=== PATIENT | female | born 1990 | race Caucasian/White ===

== ENCOUNTER 2020-07-23 11:01 | Inpatient (IN) | payer BC ==
[~2020-07-23 11:01] MED LIST: Metoclopramide HCl 10 MG/2 ML VIAL ONE
[2020-07-23] MEDS ORDERED: Acetaminophen 325 MG TAB PO PRN (11:21)
[2020-07-23] MEDS ORDERED: Ondansetron ODT 4 MG TAB PO PRN (11:21)
[2020-07-23] MEDS ORDERED: Ondansetron PF 4 MG/2 ML Vial IVP PRN (11:21)
[2020-07-23] MEDS ORDERED: Calcium Carbonate 500 MG ChewTAB PO PRN (11:21)
[2020-07-23 11:56] VITALS: BMI 30.2
[2020-07-23] MEDS ORDERED: Morphine 2 MG/ML VIAL SLOW IVP PRN (12:25)
--- NOTE | 2020-07-23 12:28 | PDOC.HHP ---
Hospitalist [facility] obstructive uropathypatient is a transfer History of Present Illness: 29-year-old female with no past history presents to [facility] emergency room on 07/21 with right-sided flank pain radiating to her groin along with dysuria and urgency. She felt nauseous however denied any vomiting. In the emergency room, CT scan was consistent with bilateral nonobstructing nephrolithiasis with right- sided pyelonephritis. She was discharged home on oral ciprofloxacin. WBC count was 7.8. Patient returned to [facility] emergency room after few hours due to worsening abdominal pain. She was admitted at [facility] and was started on ceftriaxone with Flomax. She also had mild acute kidney injury with creatinine of 1.3 that improved with IV hydration. WBC count improved to 14.9 from 17.3 yesterday. This morning she also had shortness of breath with mild hypoxia requiring discontinuation of IV fluids. Her pain was controlled with IV morphine and ibuprofen. A Garcia catheter was also placed due to urinary retention. This [place] [facility] [place] again with the radiologist and found that patient has approximately 6 mm calculi in the right ureteropelvic junction. For this reason she was transferred to this facility for higher level of care. Allergies/Adverse Reactions: Allergy/AdvReac Type Severity Reaction Status Date / Time No Allergy Information Allergy Unverified 07/23/20 12:17 Available Comments: Patient currently takes control medication. Past History: PAST MEDICAL HISTORY: Migraines PAST SURGICAL HISTORY: Reviewed with the patient and none ALLERGIES: No known drug allergies SOCIAL HISTORY: Drinks alcohol socially. No smoking or drug use FAMILY HISTORY: No history of heart disease or diabetes in her family Hospitalist HPI ROS Constitutional: denies: fever, chills, sweats, weakness, malaise, other Respiratory: reports: SOB with excertion. denies: cough, dry, shortness of breath, hemoptysis, pleuritic pain, sputum, wheezing, other Cardiovascular: denies: chest pain, palpitations, orthopnea, paroxysmal noc. dyspnea, edema, light headedness, other Genitourinary: reports: dysuria, retention All other systems reviewed; all pertinent +/- noted in HPI/Subj Hospitalist Exam Vitals: Vital Signs (12 hours) Temp Pulse Resp BP Pulse Ox 07/23/20 10:25 98.7 F 86 16 116/77 94 L Weight Weight 187 lb General Appearance: ill appearing Eye: PERRL, anicteric sclera ENT: normocephalic atraumatic, no oropharyngeal lesions Neck: supple, symmetric, no JVD Heart: RRR, no gallops, no rubs, normal peripheral pulses Respiratory: no wheezes, no ronchi, normal chest expansion, no tachypnea, rales (Add basis) Gastrointestinal: soft, normal bowel sounds, no guarding, no rigidity, tender to palpation (In the right flank) Extremities: no cyanosis, no clubbing Skin: normal turgor, no lesions Neurological: normal sensation to touch, no weakness, no focal deficits Musculoskeletal: normal tone, normal strength Psychiatric: normal affect, A&O x 3 Hospitalist Results Lab results: As discussed above. Other electrolytes were in normal range CT scan - Ab/Pelvis Status: report reviewed by me Additional Comments: As discussed above Hospitalist H&P A/P (1) Severe sepsis Code(s): A41.9 - SEPSIS, UNSPECIFIED ORGANISM; R65.20 - SEVERE SEPSIS WITHOUT SEPTIC SHOCK Status: Acute (2) Pyelonephritis of right kidney Code(s): N12 - TUBULO-INTERSTITIAL NEPHRITIS, NOT SPCF ACUTE OR CHRONIC Status: Acute (3) Obstructive uropathy Code(s): N13.9 - OBSTRUCTIVE AND REFLUX UROPATHY, UNSPECIFIED Status: Acute (4) SHAHNAZ (acute kidney injury) Code(s): N17.9 - ACUTE KIDNEY FAILURE, UNSPECIFIED Status: Acute (5) Obesity (BMI 30.0-34.9) Code(s): E66.9 - OBESITY, UNSPECIFIED Status: Acute (6) Bilateral nephrolithiasis Code(s): N20.0 - CALCULUS OF KIDNEY Status: Acute Plan: Severe sepsis due to right-sided pyelonephritis with 6 mm calculi at the right ureteropelvic junction Admit to surgical floor. Continue ceftriaxone based on the cultures. Will consult urology. N.p.o. Will hold IV fluid due to shortness of breath and hypoxemia earlier today. Chest x-ray will be obtained. Recheck labs in a.m. Morphine as needed for pain control. 1 dose of Toradol since patient has significant headache. Obesity with a BMI of 30.2 Lifestyle modification will be beneficial History of migraines We will continue to monitor SHAHNAZ improved with IV hydration
[2020-07-23] MEDS ORDERED: Fentanyl 100 MCG/2 ML VIAL ONE (12:36)
[2020-07-23] MEDS ORDERED: SUGAMMADEX SODIUM 200 MG/2 ML VIAL ONE (12:36)
[2020-07-23] MEDS ORDERED: Famotidine/PF 20 mg/2ml Vial ONE (12:36)
[2020-07-23] MEDS ORDERED: Iothalamate Meglumine 60% 50 ML VIAL FS ONE (12:42)
--- NOTE | 2020-07-23 13:09 | RAD ---
EXAM: XR Chest Pa Lat STANDARD PROVIDED CLINICAL HISTORY: Preop COMPARISON: None FINDINGS: Cardiac and mediastinal silhouette is within normal limits. There is prominent bilateral patchy airsp holly disease. There is poor definition to the posterior costophrenic angles, which may reflect pleural fluid. There is no evidence for pneumothorax. IMPRESSION: 1. Bilateral airspace disease, compatible with pneumonia. Correlate for Covid pneumonia. 2. Possible bilateral pleural fluid.
[2020-07-23] MEDS ORDERED: Sodium Chloride 0.9% 10 ML ONE (13:20)
--- NOTE | 2020-07-23 13:26 | CT ---
EXAM: CT abdomen and pelvis without contrast PROVIDED CLINICAL HISTORY: Ureteral calculus COMPARISON: None FINDINGS: Bilateral pleural fluid and bibasilar airspace disease. Bilateral nephrolithiasis, measuring 3 mm maximally involving the midportion of the right kidney. The re is right perinephric and right periureteral fat stranding and noncircumscribed fluid. There is no evidence for hydronephrosis or hydroureter. There is a 4 mm calculus present at the base of the ur inary bladder right of midline, favored to be within the urinary bladder. This could also be intramural within the UVJ. There is an additional tiny calculus present within the urinary bladder le ft of midline. The liver, spleen, pancreas and adrenal glands appear without acute abnormality. There is a featurele ss appearance to the pancreas, which is nonspecific but can be seen in the setting of autoimmune disease. There is no bowel dilatation, additional inflammatory fat stranding, free fluid or free air apparent. There is no evidence for appendicitis. The osseous structures demonstrate no concerning lytic or blastic lesions. IMPRESSION: 1. Bilateral nephrolithiasis. 2. 4 mm bladder/right UVJ calculus without evidence for hydronephrosis or hydroureter. 2 mm bladder c alculus. 3. Small bilateral fluid and bibasilar airspace disease that may reflect pneumonia or edema.
[2020-07-23] MEDS ORDERED: Furosemide 20 MG/2 ML VIAL SLOW IVP SCH (13:45)
[2020-07-23 14:11] LABS: SARS-CoV-2 NAA Rapid Test Not Detected (NotDetected)
[2020-07-23] MEDS ORDERED: Ketorolac Tromethamine 30 MG/ML VIAL IVP SCH (14:30)
--- NOTE | 2020-07-23 14:46 | CON ---
DATE OF CONSULTATION: 07/23/2020 REASON FOR CONSULTATION: Right ureteral calculi with UTI. 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 She was discharged with ciprofloxacin for presumed pyelonephritis and had white count of 17,000 with normal renal function. As she had persistent discomfort with ciprofloxacin, she returned to [facility] Emergency Room with persistent discomfort with nausea, headache. Chart from [facility] reviewed as well as imaging report. She had a CT scan initially demonstrating no evidence of hydronephrosis. Nonobstructing right renal calculi noted. However, due to persistent discomfort, it appears that the imaging was repeated; however, the results are not in chart. She relates that her right lower quadrant flank pain is improving, more concerning regarding her headache as she has tendency for migraines. She denies chills, however, appears quite uncomfortable from her migraines. She has been on Rocephin, has had increased fluid consumption for passage of stone; however, now is feeling shortness of breath, on 2 L of O2, as she states that she was provided aggressive IV fluids at [facility] Emergency Room. She denies prior history of pyelonephritis or prior history of kidney stone. PAST MEDICAL HISTORY: Migraines. SURGICAL HISTORY: None. ALLERGIES: NO KNOWN DRUG ALLERGIES. SOCIAL HISTORY: Negative x3. 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 Single. PHYSICAL EXAMINATION: VITAL SIGNS: 98, 86, 16, 94% on 2 L. Blood pressure 116/77. GENERAL: The patient is crying, speaking to her mother. She states her headache is quite unbearable. HEENT: Grossly unremarkable. HEART: Regular rate. LUNGS: Decreased inspiratory effort. No gross CVA tenderness per se. ABDOMEN: Obese. Protuberant. No suprapubic tenderness or lower quadrant discomfort. EXTREMITIES: No cyanosis, clubbing, or edema. : Grossly unremarkable. SKIN: No lesions. NEUROLOGIC: No gross focal deficits. PSYCHIATRIC: Appears anxious and uncomfortable due to severe migraines. PERTINENT LABS AND IMAGING: Which I reviewed independently. Initial white count of 17,000, subsequently 14. Creatinine 0.7. Urine culture reviewed from [facility] demonstrating E coli, resistant to quinolones, however, pansensitive to cephalosporins. CT, which I reviewed on CD, however, only one CT study is available from July 21 demonstrating bilateral nonobstructing renal calculi. No evidence of obstruction. There is no significant perinephric stranding of concern. A 6 mm right mid pole renal calculi, left punctate renal calculi x2, per my review about 2 mm each x2. IMPRESSION AND PLAN: 1. Marita is a 29-year-old female with no prior urologic history, presented to [facility] with right flank pain. 2. The patient has Escherichia coli urinary tract infection, resistant to quinolones, initially treated with ciprofloxacin and currently transferred from [facility] due to persistent discomfort. 3. History of right UVJ stone per report, the patient appears to have no obvious discomfort in the suprapubic or flank region. Moreover, her headache is a concern. She has been managed with aggressive IV fluids, it would be prudent to obtain a repeat CT scan prior to proceeding with surgical intervention. The patient agrees to proceed with restaging CT. PA and lateral chest x-ray ordered by hospitalist due to shortness of breath, likely due to aggressive IV fluids. 4. The patient was previously tested for COVID about a week ago, negative per the patient. Informed the patient that COVID-19 is to be done due to hospital protocol. addendum as above, as she has no significant right flank pain or right lower quadrant abdominal discomfort CT stone protocol obtained. CT demonstrates no evidence of hydronephrosis, perinephric stranding consistent with likely spontaneous passage of her right UVJ stone stone is seen within the bladder in a dependent position as well as a second left punctate dependent stone. No evidence of hydronephrosis bilaterally . Right upper pole 3 mm, left punctate nonobstructing punctate calculi x3. chest x-ray demonstrates fluid overload. Discussed with patient regarding these findings, as she has no flank pain of concern, clinically consistent with spontaneous passage. Could proceed with treating her UTI, pyelonephritis with Rocephin. Her main complaint at this time is migraines which primary service will address. Recommend diuresis, as her chest x-ray demonstrates bilateral pleural effusion Job ID: [id number] [facility]
[2020-07-23] MEDS: cefTRIAXone\\ROCEPHIN 2 GM in Sodium Chloride 0.9% 100 ML IVPB SCH (15:04)
[2020-07-23] MEDS ORDERED: HYDROcodone/Acetaminophen 5/325 mg Tablet PO PRN (15:49)
[2020-07-23] MEDS ORDERED: Polyethylene Glycol 3350 17 GM Packet PO PRN (15:49)
[2020-07-23] MEDS ORDERED: Senokot S 8.6-50 MG TAB PO PRN (15:49)
[2020-07-23] MEDS: Tamsulosin HCl 0.4 MG CAP PO SCH (20:22)
[2020-07-23] MEDS: Famotidine 20 MG TAB PO SCH (20:48)
[2020-07-23] MEDS ORDERED: Aspirin/APAP/Caffeine Tab (Excedrin Migraine) PO SCH (21:00)
[2020-07-23] MEDS ORDERED: Famotidine/PF 20 mg/2ml Vial SLOW IVP SCH (21:00)
[2020-07-24 05:43] LABS: #Basophils 0.1 thou/uL (0.0-0.2); #Eosinphils 0.2 thou/uL (0.0-0.7); #Lymphocytes 2.8 thou/uL (1.20-3.40); #Monocytes 1.2 thou/uL (0.11-0.59); #Neutrophils 11.7 thou/uL (1.40-6.50); %Basophils 0.5 % (0.0-1.0); %Eosinophils 0.9 % (0.0-10.0); %Lymphocytes 17.4 % (21.0-51.0); %Monocytes 7.3 % (0.0-10.0); %Neutrophils 73.9 % (42.0-75.0); Hemoglobin 12.8 g/dL (12.0-16.0); Mean Corpuscular HGB CONC 33.8 g/dL (32.0-36.0); Mean Corpuscular Hemoglobin 31.7 pg (27.0-31.0); Mean Corpuscular Volume 93.7 fL (78.0-98.0); Mean Platelet Volume 7.8 fL (7.4-10.4); Platelet Count 227 thou/uL (130-400); RBC Distribution Width 10.9 % (11.5-14.5); Red Blood Cell (RBC) Count 4.05 mill/uL (4.20-5.40); White Blood Cell (WBC) Count 15.8 thou/uL (4.8-10.8)
[2020-07-24 06:00] LABS: Anion Gap 11 mmol/L (10-20); BUN (Urea Nitrogen) 15 mg/dL (7.0-18.7); Calc. Creatinine Clearance 112 mL/min (70-130); Calcium 8.9 mg/dL (7.8-10.44); Carbon Dioxide 27 mmol/L (22-29); Chloride 108 mmol/L (98-107); Glucose 89 mg/dL (70-105); Magnesium 1.8 mg/dL (1.6-2.6); Potassium 4.1 mmol/L (3.5-5.1); Sodium 142 mmol/L (136-145)
[2020-07-24] MEDS ORDERED: Aspirin/APAP/Caffeine Tab (Excedrin Migraine) PO SCH (06:00)
[2020-07-24] MEDS ORDERED: Aspirin/APAP/Caffeine Tab (Excedrin Migraine) PO PRN ×2 (07:39→07:40)
--- NOTE | 2020-07-24 08:08 | PRG ---
DATE OF SERVICE: 07/24/2020 SUBJECTIVE: The patient denies flank pain, dysuria, fever, or chills. States that her shortness of breath is better, however, feels chest pressure. This is the most bothersome issue with her that she has chest pressure. OBJECTIVE: VITAL SIGNS: Stable. She is afebrile. She is on 2 L of O2. I's and O's 1200 in and 1700 out. GENERAL: The patient appears to have some distress due to chest discomfort and pressure. ABDOMEN: Soft, nontender, and nondistended. No CVA tenderness. PERTINENT LABORATORY DATA: White count today is 15, at [facility] yesterday was 14, hemoglobin is stable at 12, and platelet 227. Renal function stable. Creatinine 1.01. COVID test negative. The patient with history of E coli UTI, initially treated with ciprofloxacin, currently on Rocephin. IMPRESSION AND PLAN: 1. Marita is a 29-year-old female who presented to [facility] for right flank pain, found to have Escherichia coli urinary tract infection, initially treated with ciprofloxacin, subsequently transitioned to Rocephin and she was transferred to [place]. 2. History of bilateral nonobstructing renal calculi. 3. Recent passage of ureteral calculi clinically as she has no residual flank or lower quadrant abdominal discomfort. Continue to strain all urine output. Recommendations continue IV Rocephin, when the patient is medically stable, she will be transitioned to p.o. antibiotic regimen based on her urine culture sensitivity. 4. Fluid overload, chest pressure, informed nurse to contact hospitalist regarding further workup and assessment. Job ID: [id number] [facility]
[2020-07-24] MEDS ORDERED: Furosemide 40 MG/4 ML VIAL SLOW IVP SCH (08:30)
[2020-07-24] MEDS ORDERED: Potassium Chloride 20 MEQ TAB PO SCH ×2 (08:30→17:00)
[2020-07-24] MEDS ORDERED: Furosemide 40 MG/4 ML VIAL ONE (09:04)
[2020-07-24] MEDS: Famotidine 20 MG TAB PO SCH ×2 (09:10→20:38)
[2020-07-24] MEDS ORDERED: Enoxaparin Sodium 40 MG/0.4 ML SYRINGE SC SCH (10:45)
[2020-07-24] MEDS: cefTRIAXone\\ROCEPHIN 2 GM in Sodium Chloride 0.9% 100 ML IVPB SCH (15:39)
--- NOTE | 2020-07-24 17:08 | PQF ---
CLINICAL DOCUMENTATION CLARIFICATION FORM: Dear Dr. Ferrara Date: 07/24/20 Please exercise your independent, professional judgment in responding to the clarification form. Clinical indicators are provided on the bottom of this form for your review. Please check appropriate box(es): [ ] Acute Respiratory Failure: [ ] with Hypoxia [ ] with Hypercapnia [ ] Acute On Chronic Respiratory Failure: [ ] with Hypoxia [ ] with Hypercapnia [ ] Acute Respiratory Failure due to: (etiology) [ ] Chronic Respiratory Failure only [ ] with Hypoxia [ ] with Hypercapnia [ ] Other diagnosis [ ] Unable to determine In addition, please specify: Present on Admission (POA): [ ] Yes [ ] No [ ] Unable to determine For continuity of documentation, please document condition throughout progress notes and discharge summary. Thank You. To be completed by CDI/Coding staff for physician review: CLINICAL INDICATORS - SIGNS / SYMPTOMS / LABS / RESULTS AND LOCATION IN MR H&P (NAM): SHORTNESS OF BREATH AND MILD HYPOXIA NURSE NOTE 3/: DISCOMFORT TO CHEST WHEN TAKING DEEP BREATH,,,O2 SAT OF 93-94% ON 3 LITERS. RISK FACTORS / RESULTS AND LOCATION IN MR POSSIBLE FLUID OVERLOAD (PER NURSE NOTE 3/1) SHALLOW BREATHING (NURSE NOTE 3/1) BNP 317.3 TREATMENTS / RESULTS AND LOCATION IN MR IV LASIX X1 (07/24) SUPPLEMENTAL OXYGEN ECHOCARDIOGRAM ORDERED DISCONTINUATION FLUIDS (H&P) Acute Respiratory Failure: ABG pH < 7.35 or > 7.45; Decreased oxygen saturation (<90% room air or < 95% on oxygen); PCO2 > 50 mm Hg; PO2 < 60 mm Hg; Labored or rapid respirations ARDS: Dx Criteria [[place] ARDS]: Respiratory symptoms within one week of a known clinical insult (e.g. shock, infection, surgery, trauma) Bilateral opacities in CXR/Chest CT not due to CHF or fluid CDS Signature: Ursula York RN Phone #: [phone] Date: 07/24/20 This is a permanent part of the Medical Record [facility]
--- NOTE | 2020-07-24 17:51 | PDOC.HOSPP ---
- Subjective Encounter Date: 07/24/20 Encounter Time: 09:30 Subjective: Patient seen and examined for complicated UTI. Continues to have shortness of breath requiring O2 supplementation. Denies any palpitations, nausea or diaphoresis. Some generalized chest pressure reported - Objective Vital Signs & Weight: Vital Signs (12 hours) Temp Pulse Resp BP Pulse Ox 07/24/20 11:30 98.7 F 75 28 H 114/77 96 07/24/20 07:50 98.5 F 86 14 136/81 93 L 07/24/20 07:45 93 L 07/24/20 07:25 28 H Weight Weight 187 lb I&O: 07/23/20 07/24/20 07/25/20 06:59 06:59 06:59 Output Total 1200 400 Balance -1200 -400 Result Diagrams: 07/24/20 05:20 07/24/20 05:20 Additional Labs: Abnormal Lab Results - Last 48 hrs 07/24/20 05:20: WBC 15.8 H, RBC 4.05 L, MCH 31.7 H, RDW 10.9 L, Lymphocytes % 17.4 L, Neutrophils # 11.7 H, Monocytes # 1.2 H 07/24/20 05:20: Chloride 108 H 07/24/20 10:58: B-Natriuretic Peptide 317.3 H EKG Reviewed by me: Yes (Sinus rhythm with nonspecific ST-T wave changes in the inferior leads) Hospitalist ROS - Review of Systems Respiratory: reports: shortness of breath, SOB with excertion. denies: cough, dry, hemoptysis, pleuritic pain, sputum, wheezing, other Gastrointestinal: denies: nausea, vomiting, abdominal pain, diarrhea, constipation, melena, hematochezia, other - Medication Medications: Active Medications Generic Name Dose Route Start Last Admin Trade Name Freq PRN Reason Stop Dose Admin Hydrocodone Bitart/Acetaminophen 1 tab 07/23/20 15:49 07/23/20 17:35 Hydrocodone/Acetaminophen 5/325 Mg Tablet PO 1 tab Q4H PRN Administration Moderate Pain (4-6) Famotidine 20 mg 07/23/20 21:00 07/24/20 09:10 Famotidine 20 Mg Tab PO 20 mg BID JOE Administration Ceftriaxone Sodium 2 gm/ 100 mls @ 200 mls/hr 07/23/20 15:00 07/24/20 15:39 Sodium Chloride IVPB 100 mls 1500 JOE Administration Morphine Sulfate 2 mg 07/23/20 12:25 07/23/20 16:45 Morphine 2 Mg/Ml Vial SLOW IVP 07/26/20 12:26 2 mg Q4H PRN Administration Severe Pain (7-10) Tamsulosin HCl 0.4 mg 07/23/20 21:00 07/23/20 20:22 Tamsulosin Hcl 0.4 Mg Cap PO 0.4 mg HS JOE Administration Hospitalist Exam Vitals: Vital Signs (12 hours) Temp Pulse Resp BP Pulse Ox 07/24/20 11:30 98.7 F 75 28 H 114/77 96 07/24/20 07:50 98.5 F 86 14 136/81 93 L 07/24/20 07:45 93 L 07/24/20 07:25 28 H Weight Weight 187 lb General Appearance: awake alert Neck: supple, no JVD Heart: RRR Respiratory: no wheezes, rales (At bases), rhonchi Gastrointestinal: soft, non-tender, normal bowel sounds Extremities: no cyanosis, no clubbing Neurological: no new deficit Psychiatric: normal affect, A&O x 3 Hosp A/P (1) Severe sepsis Code(s): A41.9 - SEPSIS, UNSPECIFIED ORGANISM; R65.20 - SEVERE SEPSIS WITHOUT SEPTIC SHOCK Status: Acute (2) Pyelonephritis of right kidney Code(s): N12 - TUBULO-INTERSTITIAL NEPHRITIS, NOT SPCF ACUTE OR CHRONIC Status: Acute (3) Obstructive uropathy Code(s): N13.9 - OBSTRUCTIVE AND REFLUX UROPATHY, UNSPECIFIED Status: Acute (4) SHAHNAZ (acute kidney injury) Code(s): N17.9 - ACUTE KIDNEY FAILURE, UNSPECIFIED Status: Acute (5) Obesity (BMI 30.0-34.9) Code(s): E66.9 - OBESITY, UNSPECIFIED Status: Acute (6) Bilateral nephrolithiasis Code(s): N20.0 - CALCULUS OF KIDNEY Status: Acute - Plan DVT proph w/lovenox, DVT proph w/SCDs Severe sepsis due to right-sided pyelonephritis with 6 mm calculi at the right ureteropelvic junction. Repeat CT imaging showed passage of stone. Plan: Continue IV ceftriaxone based on sensitivities. Patient has leukocytosis today. Recheck labs in a.m. Urology input appreciated Acute hypoxic respiratory failure due to iatrogenic volume overloadPOA We will give another dose of IV Lasix today. Patient has bibasilar crackles BNP is elevated. EKG showed nonspecific ST-T wave changes in the inferior lead. Echocardiogram will be obtained. Pulmonary embolism less likely. Obesity with a BMI of 30.2 Lifestyle modification will be beneficial History of migraines We will continue to monitor SHAHNAZ improved with IV hydration
[2020-07-24] MEDS: Tamsulosin HCl 0.4 MG CAP PO SCH (20:38)
[2020-07-25 06:00] LABS: #Eosinphils 0.2 thou/uL (0.0-0.7); #Lymphocytes 2.1 thou/uL (1.20-3.40); #Neutrophils 7.3 thou/uL (1.40-6.50); %Basophils 0.4 % (0.0-1.0); %Eosinophils 1.9 % (0.0-10.0); %Lymphocytes 19.8 % (21.0-51.0); %Monocytes 9.5 % (0.0-10.0); %Neutrophils 68.4 % (42.0-75.0); Mean Corpuscular HGB CONC 33.3 g/dL (32.0-36.0); Mean Corpuscular Hemoglobin 31.4 pg (27.0-31.0); Mean Corpuscular Volume 94.1 fL (78.0-98.0); Mean Platelet Volume 7.3 fL (7.4-10.4); Platelet Count 246 thou/uL (130-400); RBC Distribution Width 10.9 % (11.5-14.5); Red Blood Cell (RBC) Count 4.45 mill/uL (4.20-5.40); White Blood Cell (WBC) Count 10.6 thou/uL (4.8-10.8)
[2020-07-25 06:30] LABS: Anion Gap 15 mmol/L (10-20); BUN (Urea Nitrogen) 12 mg/dL (7.0-18.7); Calc. Creatinine Clearance 133 mL/min (70-130); Calcium 8.8 mg/dL (7.8-10.44); Carbon Dioxide 24 mmol/L (22-29); Chloride 103 mmol/L (98-107); Glucose 111 mg/dL (70-105); Magnesium 1.5 mg/dL (1.6-2.6); Potassium 3.1 mmol/L (3.5-5.1); Sodium 139 mmol/L (136-145)
[2020-07-25 06:31] LABS: Phosphorus 2.8 mg/dL (2.3-4.7)
--- NOTE | 2020-07-25 07:44 | PRG ---
DATE OF SERVICE: 07/25/2020 SUBJECTIVE: The patient feeling better after diuresis. Appreciate hospitalist assessment and treatment. She denies flank pain, dysuria, gross hematuria, fever of concern. Feels well. OBJECTIVE: VITAL SIGNS: Stable, saturating better on room air. GENERAL: The patient is in no acute distress. ABDOMEN: Soft, nontender, and nondistended. No CVA tenderness. LABORATORY DATA: Of concern, white count decreased from 15 to 10, hemoglobin 14, and platelet 246. No significant shift of concern. Creatinine is 0.85. Magnesium 1.5 consistent with diuresis. Potassium 3.1. Urine culture from July 21 demonstrates E coli, quinolone resistant, currently on Rocephin, sensitive to Bactrim, Macrobid, cephalosporins. Echocardiogram reviewed, demonstrating normal findings. IMPRESSION AND PLAN: 1. Marita is a pleasant 29-year-old female, who presented to [facility] Emergency Room with right pyelonephritis, quinolone resistant, urinary tract infection, initially treated with Cipro, currently on Rocephin. 2. History of CT demonstrating no evidence of hydronephrosis, bilateral nonobstructing renal calculi with spontaneous passage of right 6-mm ureterovesical junction stone. continues to have no significant discomfort of concern. From my perspective, can be discharged when medically cleared. Replace potassium, magnesium, which can be oral regimen. Elective followup with me in few weeks advised. Recommend Omnicef for course of 14 days due to presenting pyelonephritis. appt in chart Job ID: [id number] [facility]TD[facility]
[2020-07-25] MEDS ORDERED: Magnesium Sulfate 4 GM in Sodium Chloride 0.9% 250 ML 250 ML IVPB SCH (07:45)
[2020-07-25] MEDS ORDERED: Furosemide 20 MG/2 ML VIAL SLOW IVP SCH (08:45)
[2020-07-25] MEDS: Potassium Chloride 20 MEQ TAB PO SCH ×2 (08:48→12:48)
[2020-07-25] MEDS ORDERED: Enoxaparin Sodium 40 MG/0.4 ML SYRINGE SC SCH (09:00)
[2020-07-25 14:42] VITALS: BP 124/88; TEMP 98.3
--- NOTE | 2020-07-25 17:07 | PDOC.DS.DS ---
Provider Date of Admission: 07/23/20 11:09 Date of Discharge: 07/25/20 Admitting Provider: Yandel Ferrara MD Consultations: Urology (Dr. Tang) Primary Care Physician: Unknown Course Hospital Course: HPI: 29-year-old female with no past history presents to [facility] emergency room on 07/21 with right-sided flank pain radiating to her groin along with dysuria and urgency. She felt nauseous however denied any vomiting. In the emergency room, CT scan was consistent with bilateral nonobstructing nephrolithiasis with right-sided pyelonephritis. She was discharged home on oral ciprofloxacin. WBC count was 7.8. Patient returned to [facility] emergency room after few hours due to worsening abdominal pain. She was admitted at [facility], [place], operated by [facility] and was started on ceftriaxone with Flomax. She also had mild acute kidney injury with creatinine of 1.3 that improved with IV hydration. WBC count improved to 14.9 from 17.3 yesterday. This morning she also had shortness of breath with mild hypoxia requiring discontinuation of IV fluids. Her pain was controlled with IV morphine and ibuprofen. A Garcia catheter was also placed due to urinary retention. This morning the hospitalist at [facility] reviewed the CT imaging again with the radiologist and found that patient has approximately 6 mm calculi in the right ureteropelvic junction. For this reason she was transferred to this facility for higher level of care. Brief Hospital course: The patient was admitted to the hospital with a diagnosis of complicated UTI. Urology was consulted. Patient underwent repeat imaging that showed passage of the ureteral calculus. For this reason there was no need for cystoscopy or stent placement. Ceftriaxone were discontinued per urine culture. Antibiotics will be transitioned to Omnicef. Patient has been cleared by urology for discharge. Symptomatically patient has significantly improved. Patient was placed on O2 supplementation prior to admission due to volume overl oad. She required IV diuretics. Due to intermittent chest pressure she had EKG as well as echocardiogram. Echocardiogram showed ejection fraction of 55 to 60% with normal right atrium, normal right ventricular size and function and normal left atrium. There was trace mitral regurgitation with normal aortic valve. After diuresis her shortness of breath is significantly improved. She is ambula ting in the hallway and is saturating 95% on room air Final diagnosis: Severe sepsis due to right-sided pyelonephritis with obstructive uropathy Acute hypoxic respiratory failure due to iatrogenic volume overloadresolved Obesity with a BMI 30.2 Acute kidney injury prior to admission resolved History of migraines Bilateral nephrolithiasis Resuscitation Status: 07/23/20 11:21 Resuscitation Status Routine Resuscitation Status: FULL: Full Resuscitation Lab Results: 07/25/20 05:27 07/25/20 05:27 Abnormal Lab Results - Last 48 hrs 07/24/20 05:20: WBC 15.8 H, RBC 4.05 L, MCH 31.7 H, RDW 10.9 L, Lymphocytes % 17.4 L, Neutrophils # 11.7 H, Monocytes # 1.2 H 07/24/20 05:20: Chloride 108 H 07/24/20 10:58: B-Natriuretic Peptide 317.3 H 07/25/20 05:27: Potassium 3.1 L, Magnesium 1.5 L 07/25/20 05:27: MCH 31.4 H, RDW 10.9 L, MPV 7.3 L, Lymphocytes % 19.8 L, Neutrophils # 7.3 H, Monocytes # 1.0 H Vitals: Vital Signs (12 hours) Temp Pulse Resp BP Pulse Ox 07/25/20 14:39 98.3 F 101 H 16 124/88 95 07/25/20 11:04 118 H 95 07/25/20 10:53 97.8 F 16 134/93 H 93 L 07/25/20 08:50 95 07/25/20 07:33 98.2 F 83 16 127/86 92 L 07/25/20 05:32 98.8 F 84 18 128/87 93 L Weight Weight 187 lb Physical Exam: The patient was seen and examined on the day of discharge. General Appearance: NAD Neck: supple, no JVD Respiratory: no wheezes, no ronchi Cardiovascular: no gallops, no rubs Problem (1) Severe sepsis Code(s): A41.9 - SEPSIS, UNSPECIFIED ORGANISM; R65.20 - SEVERE SEPSIS WITHOUT SEPTIC SHOCK Status: Acute (2) Pyelonephritis of right kidney Code(s): N12 - TUBULO-INTERSTITIAL NEPHRITIS, NOT SPCF ACUTE OR CHRONIC St atus: Acute (3) Obstructive uropathy Code(s): N13.9 - OBSTRUCTIVE AND REFLUX UROPATHY, UNSPECIFIED Status: Acute (4) SHAHNAZ (acute kidney injury) Code(s): N17.9 - ACUTE KIDNEY FAILURE, UNSPECIFIED Status: Acute (5) Obesity (BMI 30.0-34.9) Code(s): E66.9 - OBESITY, UNSPECIFIED Status: Acute (6) Bilateral nephrolithiasis Code(s): N20.0 - CALCULUS OF KIDNEY Status: Acute Plan Prescriptions: Furosemide [Lasix] 20 mg PO BID PRN #10 tab PRN Reason: Edema Cefdinir [Omnicef] 300 mg PO BID #28 cap Home Medications: Medication Instructions Recorded Confirmed Type Aspirin/Acetaminophen/Caffeine mg PO Q6HR 07/23/20 History [Excedrin Migraine Caplet] Cefdinir [Omnicef] 300 mg PO BID #28 cap 07/25/20 Rx Furosemide [Lasix] 20 mg PO BID PRN #10 tab 07/25/20 Rx Allergies: No Known Allergies Allergy (Unverified 07/23/20 14:10) Discharge Instructions:: BMP after 1 week - PCP to arrange/follow Referrals: [facility] [MD Not on Staff] - 7 Days Carmelita Gordon DO [Active] - 09/05/20 2:15 pm (Patient to call and confirm appointment upon discharge) Disposition: HOME Quality CORE MEASURES:: N/A
== END 2020-07-25 15:00 | disposition home or self-care (01) | DRG 871 ==
LOC: SJJU 11:09
PROVIDERS: ADMIT Internal Medicine; ATTEND Internal Medicine
DX: A41.51 Sepsis due to Escherichia coli [E. coli] (principal); J96.01 Acute respiratory failure with hypoxia; N17.9 Acute kidney failure, unspecified; N12 Tubulo-interstitial nephritis, not specified as acute or chronic; Z16.23 Resistance to quinolones and fluoroquinolones; Z20.822 Contact with and (suspected) exposure to COVID-19; E87.70 Fluid overload, unspecified; I34.0 Nonrheumatic mitral (valve) insufficiency; R65.20 Severe sepsis without septic shock; G43.909 Migraine, unspecified, not intractable, without status migrainosus; N13.9 Obstructive and reflux uropathy, unspecified; N20.0 Calculus of kidney; Z79.899 Other long term (current) drug therapy
CPT/HCPCS: 36415; 71046; 74176; 80048; 83735; 83880; 84100; 84484; 85025; 87077; 87086; 87186; 93005; 93010; 93306; J0696; J1650; J1885; J1940; J2270; J2765; J3010; J3475; J3490; J7050; S0028; U0002